=== PATIENT | female | born 2000 | race Two or more races ===

== ENCOUNTER 2019-03-04 20:17 | Emergency (ER) | payer MEDICAID ==
[~2019-03-04] VITALS: Ht 162.6 cm; Wt 84.2 kg
--- NOTE | 2019-03-04 20:45 | NUR ---
PT STATED " I HAVE SEVERE VAGINAL BLEEDING, CLOTS, ABD CRAMPING THAT STARTED YESTERDAY,PT FEELS BETTER NOW. PT UP TO RR WITH STEADY GAIT. NOW RESTING ON GURNEY, MONITORS APPLIED, SIDERAILS UP X2, CALL LIGHT WITHIN REACH
--- NOTE | 2019-03-04 21:14 | NUR ---
URINE SAMPLE SENT
[2019-03-04 21:28] LABS: BASOPHILS # (AUTO) 0.03 x10^3/uL (0-0.3); BASOPHILS % (AUTO) 0 % (0-1); EOSINOPHILS # (AUTO) 0.17 x10^3/uL (0-0.8); EOSINOPHILS % (AUTO) 2 % (1-7); LYMPHOCYTES # (AUTO) 1.74 x10^3/uL (1-6.1); LYMPHOCYTES % (AUTO) 15 % (22-44); MD NO; MEAN CORPUSCULAR HEMOGLOBIN 31.8 pg (27.0-34.8); MEAN CORPUSCULAR HGB CONC 33.7 g/dL (32.4-35.8); MEAN CORPUSCULAR VOLUME 94.3 fL (80-100); MONOCYTES # (AUTO) 0.51 x10^3/uL (0-1.4); MONOCYTES % (AUTO) 5 % (2-9); NEUTROPHILS # (AUTO) 8.92 x10^3/uL (1.8-8.0); NEUTROPHILS % (AUTO) 78 % (42-75); PLATELET COUNT 287 x10^3/uL (130-400); RED BLOOD COUNT 3.95 x10^6/uL (3.82-5.3); RED CELL DISTRIBUTION WIDTH 12.7 % (9.6-15.2)
--- NOTE | 2019-03-04 21:30 | NUR ---
PT TO ULTRASOUND
[2019-03-04 21:39] LABS: ALANINE AMINOTRANSFERASE 33 U/L (12-78); ALBUMIN 3.6 g/dL (3.4-5.0); ANION GAP 8 mmol/L (5-15); CALCIUM 9.2 mg/dL (8.5-10.1); CHLORIDE 108 mmol/L (98-107); CREATININE 0.84 mg/dL (0.55-1.02)
[2019-03-04 21:43] LABS: MICROSCOPIC INDICATED
--- NOTE | 2019-03-04 21:52 | NUR ---
PT RESTING ON GURNEY, DENIES NEEDS, MONITORS IN PLACE, CALL LIGHT WITHIN REACH. AWAITING LABS AND ULTRASOUND RESULT
[2019-03-04 21:56] LABS: CULTURE INDICATED? NO
[2019-03-04 21:56] LABS: ALKALINE PHOSPHATASE 61 U/L (45-117); BILIRUBIN,TOTAL 0.3 mg/dL (0.2-1.0); TOTAL PROTEIN 7.4 g/dL (6.4-8.2)
[2019-03-04 22:52] VITALS: BP 106/67
== END 2019-03-04 23:03 | disposition home or self-care (01) ==
LOC: EDBD 20:17 → ED 22:20
DX: O20.0 Threatened abortion (principal)
CPT/HCPCS: 36415; 76830; 80053; 81001; 84702; 85025; 86901; 99284